=== PATIENT | male | born 1990 | race Caucasian/White ===

== ENCOUNTER 2020-05-01 13:46 | Emergency (ER) | payer OTHER ==
[~2020-05-01] VITALS: Ht 170.2 cm; Wt 73.0 kg
[~2020-05-01 13:46] MED LIST: BENZ1TAB7 PO; RISP2 PO
[2020-05-01] MEDS ORDERED: SODIUM CHLORIDE 0.9% 1,000 ML IV ONE (14:45)
[2020-05-01 15:20] LABS: BASOPHILS % 0.8 % (0.0-2.0); EOSINOPHILS % 0.1 % (0.0-5.0); HEMATOCRIT. 36.8 % (42.0-52.0); HEMOGLOBIN. 11.8 g/dL (14.0-18.0); LYMPHOCYTES % 32.2 % (20.0-50.0); MEAN CORPUSCULAR HEMOGLOBIN 26.4 pg (28.0-32.0); MEAN CORPUSCULAR VOLUME 82.5 fL (80.0-94.0); MEAN PLATELET VOLUME 6.8 fl (7.4-10.4); MONOCYTES % 7.9 % (2.0-8.0); PLATELET 226 x1000/uL (130-400); RED BLOOD CELL COUNT 4.47 mill/uL (4.7-6.1)
[2020-05-01 15:22] LABS: CHLORIDE 101 mEq/L (98-107)
[2020-05-01 15:52] LABS: ETHANOL BLOOD 529 mg/dL
[2020-05-01 16:01] LABS: PLATELET ESTIMATE NORMAL
[2020-05-01] MEDS ORDERED: FOLIC ACID 1 MG, THIAMINE HCL 100 MG, MVI, ADULT NO.1 10 ML in DEXTROSE 5% WATER 1,000 ML IV ONE ×4 (20:30)
[2020-05-01] MEDS ORDERED: ONDANSETRON HCL 4MG/2ML INJ IV ONE (20:30)
[2020-05-01] MEDS ORDERED: MULTIVITAMINS,THER W-MINERALS TABLET PO NR (21:00)
[2020-05-01] MEDS ORDERED: FOLIC ACID 1 MG, THIAMINE HCL 100 MG in DEXTROSE 5% WATER 1,000 ML IV ONE (21:00)
[2020-05-02] MEDS ORDERED: METOCLOPRAMIDE HCL 10MG/2ML VIAL IV ONE (00:15)
[2020-05-02] MEDS ORDERED: CHLORDIAZEPOXIDE 25MG CAPSULE PO ONE (03:00)
[2020-05-02 03:39] VITALS: BP 120/85
== END 2020-05-02 03:42 | disposition home or self-care (01) ==
LOC: ER 13:46
DX: F10.129 Alcohol abuse with intoxication, unspecified (principal); Y90.8 Blood alcohol level of 240 mg/100 ml or more; F15.10 Other stimulant abuse, uncomplicated
CPT/HCPCS: 36415; 80053; 80320; 85025; 93005; 96361; 96365; 96366; 96375; 99285; J2405; J2765; J3411; J3490; J7030; J7070; G0480